=== PATIENT | female | born 1980 | race Caucasian/White ===

== ENCOUNTER 2019-02-27 18:49 | Emergency (ER) | payer MEDICAID, MEDICARE ==
[~2019-02-27] VITALS: Ht 170.2 cm; Wt 78.8 kg
--- NOTE | 2019-02-27 19:45 | NUR ---
THIS IS A 38Y F THAT COMES IN FOR INTENSE HEADACHE. PT HAS HX OF MIGRAINES STS SHE HAS TAKEN HER MEDS BUT HAS GOTTEN NO RELIEF. PT STS SHE HAS AN UPCOMING APT WITH NEURO NEXT MONTH. PT CONNECTED TO MONITORING VSS, NADN, LIGHTS DIMMED AND DOOR SHUT FOR COMFORT.
[2019-02-27] MEDS ORDERED: DIAZEPAM 5 MG/ML, 2ML ONE (19:59)
[2019-02-27] MEDS ORDERED: KETOROLAC 30 MG/1 ML ONE (19:59)
[2019-02-27] MEDS ORDERED: PROCHLORPERAZINE 5 MG/ML, 2ML ONE (19:59)
[2019-02-27] MEDS ORDERED: DIAZEPAM 5 MG/ML, 2ML IVPush ONE (20:00)
[2019-02-27] MEDS ORDERED: SODIUM CHLORIDE 0.9% 1,000ML IVBOLUS ONE (20:00)
[2019-02-27] MEDS ORDERED: KETOROLAC 30 MG/1 ML IVPush ONE (20:00)
[2019-02-27] MEDS ORDERED: PROCHLORPERAZINE 5 MG/ML, 2ML IVPush ONE (20:00)
[2019-02-27] MEDS ORDERED: SODIUM CHLORIDE FLUSH 10ML SYR IVF ONE (20:00)
--- NOTE | 2019-02-27 20:26 | NUR ---
PT MEDICATED PER MAR
[2019-02-27 21:35] VITALS: BP 104/74
== END 2019-02-27 21:42 | disposition home or self-care (01) ==
LOC: ED 21:27
DX: J01.10 Acute frontal sinusitis, unspecified (principal); G43.909 Migraine, unspecified, not intractable, without status migrainosus; Z90.710 Acquired absence of both cervix and uterus; Z90.89 Acquired absence of other organs
CPT/HCPCS: 70450; 96374; 96375; 99284; J0780; J1885; J3360; J7030

== ENCOUNTER 2019-03-03 11:52 | Emergency (ER) | payer MEDICARE, MEDICAID ==
[~2019-03-03] VITALS: Ht 170.2 cm; Wt 78.7 kg
--- NOTE | 2019-03-03 12:51 | NUR ---
BREAK RN: PT TO ROOM FROM LOBBY
[2019-03-03] MEDS ORDERED: SODIUM CHLORIDE FLUSH 10ML SYR IVF ONE (13:30)
[2019-03-03] MEDS ORDERED: SODIUM CHLORIDE 0.9% 1,000ML IVBOLUS ONE ×2 (13:30→14:30)
[2019-03-03] MEDS ORDERED: METOCLOPRAMIDE 5 MG/ML, 2ML IVPush ONE (13:30)
[2019-03-03] MEDS ORDERED: DIPHENHYDRAMINE 50 MG/ML, 1ML IVPush ONE (13:30)
[2019-03-03] MEDS ORDERED: KETOROLAC 30 MG/1 ML IVPush ONE (13:30)
[2019-03-03] MEDS ORDERED: KETOROLAC 30 MG/1 ML ONE (13:39)
[2019-03-03] MEDS ORDERED: METOCLOPRAMIDE 5 MG/ML, 2ML ONE (13:39)
[2019-03-03] MEDS ORDERED: DIPHENHYDRAMINE 50 MG/ML, 1ML ONE (13:39)
[2019-03-03 15:04] VITALS: BP_DIAS 59
--- NOTE | 2019-03-03 15:05 | NUR ---
SBAR RPT REC'D FROM EULALIA MCKEE. ASSUMED PT CARE. 2ND LITER NS STARTED, PT RPTS NO RELIEF OF MIGRAINE PAIN BUT STATES THAT DIZZINESS IS BETTER. VSS. WARM BLANKET PROVIDED AND CALL LIGHT W/I REACH
--- NOTE | 2019-03-03 16:07 | NUR ---
2ND LITER BOLUS COMPLETED. PT RPTS OREILLY PAIN NOW 05/28. PT OOB AND AMBULATED TO BATHROOM UPRIGHT STEADY GAIT. RTD TO ROOM W/O INCIDENT. PT VERBALIZES "READY TO GO HOME"
[2019-03-03 16:19] VITALS: BP_SYST 105
--- NOTE | 2019-03-03 16:21 | NUR ---
Patient/Caregiver given discharge instructions and they have confirmed that they understand the instructions. Patient ambulatory with steady gait.
--- NOTE | 2019-03-03 19:12 | NUR ---
PTS JACKET LEFT IN ROOM. I PLACED IT IN A BELONGINGS BAG AND GAVE IT TO SECURITY
== END 2019-03-03 16:22 | disposition home or self-care (01) ==
LOC: ED 13:15
DX: G43.019 Migraine without aura, intractable, without status migrainosus (principal); R11.2 Nausea with vomiting, unspecified; F17.200 Nicotine dependence, unspecified, uncomplicated; Z90.710 Acquired absence of both cervix and uterus; Z90.49 Acquired absence of other specified parts of digestive tract
CPT/HCPCS: 96361; 96374; 96375; 99283; J1200; J1885; J2765; J7030

== ENCOUNTER 2019-07-24 11:36 | Emergency (ER) | payer MEDICARE ==
[~2019-07-24] VITALS: Ht 170.2 cm; Wt 79.0 kg
[2019-07-24] MEDS ORDERED: ALBUTEROL/IPRATROPIUM 2.5MG/0.5MG, 3 ML NPPB ONE (12:30)
[2019-07-24] MEDS ORDERED: ALBUTEROL/IPRATROPIUM 2.5MG/0.5MG, 3 ML ONE (12:40)
--- NOTE | 2019-07-24 12:49 | NUR ---
Pt resting, resp even and unlabored, no signs of distress. Breathing TX provided. Occasional cough noted.
--- NOTE | 2019-07-24 13:29 | NUR ---
Pt states feeling better post breathing TX. Headed to X ray
[2019-07-24] MEDS ORDERED: RISP4TAB2 PO (13:49)
[2019-07-24] MEDS ORDERED: QUET100T4 PO (13:49)
[2019-07-24] MEDS ORDERED: ESCI20TA10 PO (13:50)
[2019-07-24] MEDS ORDERED: PANT40TA5 PO (13:51)
[2019-07-24] MEDS ORDERED: ARIP2TAB2 PO (13:51)
[2019-07-24 14:24] VITALS: BP 123/82
== END 2019-07-24 14:26 | disposition home or self-care (01) ==
LOC: ED 12:03
DX: J30.1 Allergic rhinitis due to pollen (principal); R94.31 Abnormal electrocardiogram [ECG] [EKG]; Z87.891 Personal history of nicotine dependence
CPT/HCPCS: 71046; 93005; 94640; 99283; J7512

== ENCOUNTER 2019-07-31 17:28 | Emergency (ER) | payer MEDICARE ==
[~2019-07-31] VITALS: Ht 170.2 cm; Wt 77.8 kg
[~2019-07-31 17:28] MED LIST: ARIP2TAB2 PO; ESCI20TA10 PO; PANT40TA5 PO; QUET100T4 PO; RISP4TAB2 PO
--- NOTE | 2019-07-31 18:08 | NUR ---
TO ROOM FROM LOBBY. NAD.
[2019-07-31 19:59] LABS: BASOPHILS # (AUTO) 0.05 x10^3/uL (0-0.1); BASOPHILS % (AUTO) 0 % (0-1); EOSINOPHILS # (AUTO) 0.42 x10^3/uL (0-0.4); EOSINOPHILS % (AUTO) 3 % (1-7); LYMPHOCYTES # (AUTO) 2.96 x10^3/uL (1-3.4); LYMPHOCYTES % (AUTO) 24 % (22-44); MD NO; MEAN CORPUSCULAR HEMOGLOBIN 29.1 pg (27.0-34.8); MEAN CORPUSCULAR HGB CONC 32.8 g/dL (32.4-35.8); MEAN CORPUSCULAR VOLUME 88.7 fL (80-100); MEAN PLATELET VOLUME 7.8 fL (7.4-10.4); MONOCYTES # (AUTO) 0.81 x10^3/uL (0.2-0.8); MONOCYTES % (AUTO) 7 % (2-9); NEUTROPHILS # (AUTO) 8.29 x10^3/uL (1.8-6.8); NEUTROPHILS % (AUTO) 66 % (42-75); PLATELET COUNT 318 x10^3/uL (130-400); RED BLOOD COUNT 4.38 x10^6/uL (3.82-5.3); RED CELL DISTRIBUTION WIDTH 13.7 % (9.6-15.2)
[2019-07-31 20:09] LABS: ALBUMIN 3.5 g/dL (3.4-5.0); ANION GAP 8 mmol/L (5-15); CALCIUM 9.1 mg/dL (8.5-10.1); CHLORIDE 105 mmol/L (98-107)
[2019-07-31 20:11] VITALS: BP 106/77
[2019-07-31 20:15] LABS: ALANINE AMINOTRANSFERASE 16 U/L (12-78); ALKALINE PHOSPHATASE 81 U/L (45-117); BILIRUBIN,TOTAL 0.2 mg/dL (0.2-1.0); CREATININE 1.21 mg/dL (0.55-1.02); TROPONIN I < 0.015 ng/mL (0.000-0.045)
== END 2019-07-31 21:33 | disposition home or self-care (01) ==
LOC: ED 20:43
DX: R09.1 Pleurisy (principal); R06.00 Dyspnea, unspecified; R53.83 Other fatigue; R94.31 Abnormal electrocardiogram [ECG] [EKG]; G43.909 Migraine, unspecified, not intractable, without status migrainosus; Z90.89 Acquired absence of other organs; Z90.710 Acquired absence of both cervix and uterus
CPT/HCPCS: 36415; 71045; 80053; 84484; 85025; 93005; 99285

== ENCOUNTER 2019-08-27 10:41 | Emergency (ER) | payer MEDICAID, MEDICARE ==
[~2019-08-27] VITALS: Ht 170.2 cm; Wt 80.7 kg
[2019-08-27] MEDS ORDERED: KETOROLAC 30 MG/1 ML IVPush ONE (11:00)
[2019-08-27] MEDS ORDERED: DIPHENHYDRAMINE 50 MG/ML, 1ML IVPush ONE (11:00)
[2019-08-27] MEDS ORDERED: METOCLOPRAMIDE 5 MG/ML, 2ML IVPush ONE (11:00)
[2019-08-27] MEDS ORDERED: SODIUM CHLORIDE 0.9% 1,000ML IVBOLUS ONE (11:00)
[2019-08-27] MEDS ORDERED: KETOROLAC 30 MG/1 ML ONE (11:06)
[2019-08-27] MEDS ORDERED: METOCLOPRAMIDE 5 MG/ML, 2ML ONE (11:06)
[2019-08-27] MEDS ORDERED: DIPHENHYDRAMINE 50 MG/ML, 1ML ONE (11:06)
--- NOTE | 2019-08-27 11:14 | NUR ---
pt in room. nibp, and o2 monitoring in place. pt medicated per order. call light in reach. lights dim in room for pt comfort.
[2019-08-27] MEDS ORDERED: MORPHINE SULFATE 4 MG/ML, 1ML ONE (11:39)
[2019-08-27 11:42] VITALS: BP 110/74
[2019-08-27] MEDS ORDERED: MORPHINE SULFATE 4 MG/ML, 1ML IVPush PRN (12:00)
--- NOTE | 2019-08-27 12:06 | NUR ---
PT RESTING COMFORTABLY IN ROOM. PT STATES POSITIVE RELIEF OF PAIN FROM MORPHINE. LIGHTS ARE STILL DIMMED FOR COMFORT AND CALL LIGHT IN REACH.
[2019-08-27] MEDS ORDERED: DEXAMETHASONE 4 MG/ML, 5ML ONE (12:17)
[2019-08-27] MEDS ORDERED: DEXAMETHASONE 4 MG/ML, 1ML IVPush ONE (12:30)
== END 2019-08-27 12:49 | disposition home or self-care (01) ==
LOC: ED 11:17
DX: G43.909 Migraine, unspecified, not intractable, without status migrainosus (principal); R11.2 Nausea with vomiting, unspecified
CPT/HCPCS: 96361; 96374; 96375; 99284; J1100; J1200; J1885; J2270; J2765; J7030

== ENCOUNTER 2019-10-15 13:52 | Emergency (ER) | payer MEDICARE ==
[~2019-10-15] VITALS: Ht 170.2 cm; Wt 78.0 kg
[2019-10-15 13:59] VITALS: BP 114/76
--- NOTE | 2019-10-15 14:04 | NUR ---
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
--- NOTE | 2019-10-15 15:12 | NUR ---
ALL RESULTS ARE BACK AT THIS TIME. CHART UP FOR RECHECK.
--- NOTE | 2019-10-15 15:24 | NUR ---
MD AT BEDSIDE TO UPDATE PT ON POC.
== END 2019-10-15 16:00 | disposition home or self-care (01) ==
LOC: ED 14:14
DX: S83.422A Sprain of lateral collateral ligament of left knee, initial encounter (principal); S93.492A Sprain of other ligament of left ankle, initial encounter; S83.412A Sprain of medial collateral ligament of left knee, initial encounter; S63.521A Sprain of radiocarpal joint of right wrist, initial encounter; G43.909 Migraine, unspecified, not intractable, without status migrainosus; W01.0XXA Fall on same level from slipping, tripping and stumbling without subsequent striking against object, initial encounter; Y93.01 Activity, walking, marching and hiking; Y92.098 Other place in other non-institutional residence as the place of occurrence of the external cause; Y99.8 Other external cause status
CPT/HCPCS: 29125; 29505; 99284

== ENCOUNTER 2019-10-21 13:36 | Emergency (ER) | payer MEDICARE, MEDICAID ==
[~2019-10-21] VITALS: Ht 170.2 cm; Wt 82.0 kg
[~2019-10-21 13:36] MED LIST changes: -PANT40TA5 PO; +PANT40TA6 PO
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
[2019-10-21] MEDS ORDERED: HYDROcodone/APAP 5/325 TABLET ONE (15:13)
[2019-10-21 15:51] VITALS: BP 111/68
[2019-10-21] MEDS ORDERED: HYDROcodone/APAP 5/325 TABLET PO ONE (16:00)
== END 2019-10-21 15:54 | disposition home or self-care (01) ==
LOC: ED 15:25
DX: S80.02XA Contusion of left knee, initial encounter (principal); X58.XXXA Exposure to other specified factors, initial encounter; R06.02 Shortness of breath; Y93.89 Activity, other specified; Y92.89 Other specified places as the place of occurrence of the external cause; Y99.8 Other external cause status
CPT/HCPCS: 99283

== ENCOUNTER 2019-10-29 09:08 | Emergency (ER) | payer MEDICARE, MEDICAID ==
[~2019-10-29] VITALS: Ht 170.2 cm; Wt 83.4 kg
[2019-10-29 09:12] VITALS: BP 114/80
[2019-10-29] MEDS ORDERED: LORazepam 1MG TABLET ONE (09:26)
[2019-10-29] MEDS ORDERED: LORazepam 1MG TABLET PO ONE (09:30)
== END 2019-10-29 09:42 | disposition home or self-care (01) ==
LOC: ED 09:40
DX: F41.1 Generalized anxiety disorder (principal); J45.909 Unspecified asthma, uncomplicated; G43.909 Migraine, unspecified, not intractable, without status migrainosus; Z90.49 Acquired absence of other specified parts of digestive tract; Z90.710 Acquired absence of both cervix and uterus; Z87.891 Personal history of nicotine dependence
CPT/HCPCS: 99283

== ENCOUNTER 2020-04-22 20:40 | Emergency (ER) | payer MEDICARE, MEDICAID ==
[~2020-04-22] VITALS: Ht 170.2 cm; Wt 84.3 kg
[~2020-04-22 20:40] MED LIST changes: -RISP4TAB2 PO; +RISP4TAB66 PO
[2020-04-22 20:53] VITALS: BP 136/89
--- NOTE | 2020-04-22 21:10 | NUR ---
health and human performance professor: pt from lobby to room 12
[2020-04-22] MEDS ORDERED: ACETAMINOPHEN 500 MG TABLET PO ONE (21:30)
[2020-04-22] MEDS ORDERED: PROCHLORPERAZINE 5 MG/ML, 2ML IM ONE (21:30)
[2020-04-22] MEDS ORDERED: KETOROLAC 30 MG/1 ML IM ONE (21:30)
[2020-04-22] MEDS ORDERED: DIPHENHYDRAMINE 25 MG CAPSULE PO ONE (21:30)
[2020-04-22] MEDS ORDERED: ACETAMINOPHEN 500 MG TABLET ONE (21:42)
[2020-04-22] MEDS ORDERED: KETOROLAC 30 MG/1 ML ONE (21:42)
[2020-04-22] MEDS ORDERED: DIPHENHYDRAMINE 25 MG CAPSULE ONE (21:42)
[2020-04-22] MEDS ORDERED: PROCHLORPERAZINE 5 MG/ML, 2ML ONE (21:42)
[2020-04-22] MEDS ORDERED: NEOSPORIN OINT. PKT 1 PACKET ONE (21:51)
== END 2020-04-22 22:26 | disposition home or self-care (01) ==
LOC: ED 22:10
DX: S06.0X0A Concussion without loss of consciousness, initial encounter (principal); S00.33XA Contusion of nose, initial encounter; S50.11XA Contusion of right forearm, initial encounter; R11.2 Nausea with vomiting, unspecified; J45.909 Unspecified asthma, uncomplicated; Z90.89 Acquired absence of other organs; Z90.710 Acquired absence of both cervix and uterus; X58.XXXA Exposure to other specified factors, initial encounter; Y93.89 Activity, other specified; Y92.89 Other specified places as the place of occurrence of the external cause; Y99.8 Other external cause status
CPT/HCPCS: 70450; 70486; 96372; 99285; J0780; J1885; Q0163

== ENCOUNTER 2020-06-13 18:07 | Emergency (ER) | payer MEDICARE, MEDICAID ==
[~2020-06-13] VITALS: Ht 170.2 cm; Wt 84.3 kg
[2020-06-13] MEDS ORDERED: HYDROcodone/APAP 10/325 MG TABLET ONE (18:52)
--- NOTE | 2020-06-13 18:57 | NUR ---
PT MEDICATED PER EMAR FOR 7/10 L SIDE NECK PAIN
[2020-06-13] MEDS ORDERED: HYDROcodone/APAP 10/325 MG TABLET PO ONE (19:00)
--- NOTE | 2020-06-13 19:20 | NUR ---
WITH REASSESSMENT NECK/HEADACHE REMAINS 08/27 LYRICA REQUESTED FROM PHARMACY
[2020-06-13] MEDS ORDERED: PREGABALIN 25 MG CAPSULE PO ONE (19:30)
[2020-06-13 19:59] VITALS: BP 117/83
--- NOTE | 2020-06-13 19:59 | NUR ---
REPORTS IMPROVED PAIN WITH NORCO. LYRICA ADMINISTERED PER EMAR.
[2020-06-13] MEDS ORDERED: PREGABALIN 50 MG CAPSULE PO ONE (20:00)
--- NOTE | 2020-06-13 20:20 | NUR ---
DC EDUCATION PROVIDED, PT DEMONSTRATES UNDERSTANDING. PT AMBULATED STEADILY TO DC WITH RN. FRIEND TO TRANSPORT PT HOME.
== END 2020-06-13 20:43 | disposition home or self-care (01) ==
LOC: ED 19:41
DX: M54.12 Radiculopathy, cervical region (principal); R94.31 Abnormal electrocardiogram [ECG] [EKG]; G43.909 Migraine, unspecified, not intractable, without status migrainosus; J45.909 Unspecified asthma, uncomplicated; Z90.89 Acquired absence of other organs; Z90.710 Acquired absence of both cervix and uterus
CPT/HCPCS: 93005; 99284; J7512

== ENCOUNTER 2020-07-04 21:01 | Emergency (ER) | payer MEDICARE, MEDICAID ==
[~2020-07-04] VITALS: Ht 172.7 cm; Wt 80.9 kg
[2020-07-04 21:02] VITALS: BP 119/85
--- NOTE | 2020-07-04 22:53 | NUR ---
PT AMBULATORY TO ROOM 37 W/ C/O NOT HAVING A VOICE X 7 DAYS W/ A MILD SORE THROAT. PT AOX4. DENIES SOB/COUGH/CP/PAOLA. PT RESTING ON RWAXHAW. CHICHO.
[2020-07-04] MEDS ORDERED: DEXAMETHASONE 4 MG TABLET ONE (23:19)
[2020-07-04] MEDS ORDERED: DEXAMETHASONE 4 MG TABLET PO ONE (23:30)
== END 2020-07-05 00:43 | disposition home or self-care (01) ==
LOC: ED 21:07
DX: J04.0 Acute laryngitis (principal); B97.89 Other viral agents as the cause of diseases classified elsewhere; J45.909 Unspecified asthma, uncomplicated; G43.909 Migraine, unspecified, not intractable, without status migrainosus
CPT/HCPCS: 87081; 87880; 99283